=== PATIENT | female | born 1970 | race Caucasian/White ===

== ENCOUNTER 2017-04-25 00:09 | Inpatient (IN) | payer MEDICAID ==
[~2017-04-25] VITALS: Ht 167.6 cm; Wt 92.1 kg
[2017-04-25 01:36] LABS: BASOPHIL % 0.5 % (0-2); PLATELET COUNT 173 x10^3mcL (130-400); RED CELL DISTRIBUTION WIDTH 15.3 % (11.5-14.5)
[2017-04-25 01:40] LABS: CALCIUM 8.7 mg/dL (8.5-10.1); CARBON DIOXIDE 23.6 mmol/L (21-32); CHLORIDE SERUM 99 mmol/L (98-107); CREATININE SERUM 0.7 mg/dL (0.6-1.0); GFR1 > 60 mL/min; GLUCOSE SERUM 91 mg/dL (74-106); POTASSIUM SERUM 3.2 mmol/L (3.5-5.1); SODIUM SERUM 138 mmol/L (136-145)
[2017-04-25 01:45] LABS: ALBUMIN 3.6 g/dL (3.4-5.0); ALKALINE PHOSPHATASE 92 U/L (46-116); ALT/SGPT 63 U/L (14-59); AST/SGOT 69 U/L (15-37); BILIRUBIN TOTAL 3.32 mg/dL (0.20-1.00); MAGNESIUM 1.3 mg/dL (1.8-2.4); TOTAL PROTEIN, SERUM 6.9 g/dL (6.4-8.2)
[2017-04-25 04:04] VITALS: BP 145/81
[2017-04-25 04:39] LABS: T3 TOTAL 0.83 ng/mL
[2017-04-25 04:40] LABS: FREE T4 0.94 ng/dL (0.76-1.46); T4(THYROXINE) 5.5 ug/dL (4.7-13.3)
[2017-04-25 04:42] LABS: PHOSPHOROUS 2.6 mg/dL (2.5-4.9)
[2017-04-25 04:44] LABS: CHOLESTEROL/HDL RATIO 1.8
[2017-04-25 05:08] VITALS: BP 145/81
[2017-04-25 06:07] LABS: UA SPECIFIC GRAVITY 1.015 (1.005-1.035); microscopic required? YES; urine erythrocyte 2+ (NEGATIVE)
[2017-04-25 07:26] LABS: AMPHETAMINE QUAL UR NONE DETECTED (NEG <=1000)
[2017-04-25 09:29] VITALS: BP 130/89
[2017-04-25 14:05] VITALS: BP 120/79
[2017-04-25 18:01] VITALS: BP 144/89
[2017-04-25 21:47] VITALS: BP 137/87
[2017-04-26 04:53] VITALS: BP 134/94
[2017-04-26 06:32] LABS: CALCIUM 8.5 mg/dL (8.5-10.1); CARBON DIOXIDE 25.5 mmol/L (21-32); CHLORIDE SERUM 102 mmol/L (98-107); CREATININE SERUM 0.6 mg/dL (0.6-1.0); GFR1 > 60 mL/min; GLUCOSE SERUM 93 mg/dL (74-106); MAGNESIUM 1.7 mg/dL (1.8-2.4); POTASSIUM SERUM 3.8 mmol/L (3.5-5.1); SODIUM SERUM 137 mmol/L (136-145)
[2017-04-26 08:42] VITALS: BP 125/80
[2017-04-26 12:22] VITALS: BP 143/90
[2017-04-26] MEDS ORDERED: ECO81 PO (13:36)
[2017-04-26] MEDS ORDERED: DILTIAZEM30 M1 PO (13:37)
[2017-04-26] MEDS ORDERED: KEP500 PO (13:37)
[2017-04-26 16:22] VITALS: BP 134/93
[2017-04-26 21:50] VITALS: BP 146/95
[2017-04-27 04:52] VITALS: BP 138/87
[2017-04-27 08:05] VITALS: BP 142/87
[2017-04-27 12:34] VITALS: BP 151/90
[2017-04-27 16:31] VITALS: BP 142/91
[2017-04-27 20:43] VITALS: BP 142/89
[2017-04-28 05:29] VITALS: BP 142/91
[2017-04-28 08:54] VITALS: BP 140/89
[2017-04-28 12:39] VITALS: BP 141/89
[2017-04-28 16:26] VITALS: BP 144/94
[2017-04-28 20:45] VITALS: BP 136/88
[2017-04-29 05:33] VITALS: BP 123/85
[2017-04-29 06:58] LABS: CALCIUM 9.2 mg/dL (8.5-10.1); CARBON DIOXIDE 29.1 mmol/L (21-32); CHLORIDE SERUM 98 mmol/L (98-107); CREATININE SERUM 0.8 mg/dL (0.6-1.0); GFR1 > 60 mL/min; GLUCOSE SERUM 88 mg/dL (74-106); MAGNESIUM 1.6 mg/dL (1.8-2.4); SODIUM SERUM 137 mmol/L (136-145)
[2017-04-29 08:50] VITALS: BP 144/85
[2017-04-29 11:48] VITALS: BP 149/88
[2017-04-29 16:50] VITALS: BP 149/88
== END 2017-04-29 18:55 | disposition home or self-care (01) | DRG 201 ==
LOC: ED 00:09 → DU 02:52
PROVIDERS: Emergency Medicine; Student in an Organized Health Care Education/Training Program; ADMIT Family Medicine
DX: I48.0 Paroxysmal atrial fibrillation (principal); N17.0 Acute kidney failure with tubular necrosis; E83.39 Other disorders of phosphorus metabolism; E83.42 Hypomagnesemia; K76.0 Fatty (change of) liver, not elsewhere classified; E87.6 Hypokalemia; I69.898 Other sequelae of other cerebrovascular disease; G40.909 Epilepsy, unspecified, not intractable, without status epilepticus; R31.9 Hematuria, unspecified; K80.20 Calculus of gallbladder without cholecystitis without obstruction; Z59.0 Homelessness; Z91.19 Patient's noncompliance with other medical treatment and regimen; Z82.3 Family history of stroke
CPT/HCPCS: 83880; 84439; G0480; J1956; J2060; J3475; J3490; J7030

== ENCOUNTER 2017-06-08 20:04 | Emergency (ER) | payer MEDICAID ==
[~2017-06-08 20:04] MED LIST: DILTIAZEM30 M1 PO; ECO81 PO; KEP500 PO
[2017-06-08 21:26] LABS: CALCIUM 8.4 mg/dL (8.5-10.1); CARBON DIOXIDE 30.4 mmol/L (21-32); CHLORIDE SERUM 104 mmol/L (98-107); CREATININE SERUM 0.6 mg/dL (0.6-1.0); GFR1 > 60 mL/min; GLUCOSE SERUM 87 mg/dL (74-106); SODIUM SERUM 144 mmol/L (136-145)
[2017-06-08 21:32] LABS: ALBUMIN 3.8 g/dL (3.4-5.0); ALKALINE PHOSPHATASE 93 U/L (46-116); ALT/SGPT 95 U/L (14-59); AST/SGOT 74 U/L (15-37); TOTAL PROTEIN, SERUM 7.2 g/dL (6.4-8.2)
[2017-06-08 21:34] LABS: BASOPHIL % 0.8 % (0-2); PLATELET COUNT 201 x10^3mcL (130-400)
[2017-06-08 21:35] LABS: RED CELL DISTRIBUTION WIDTH 18.3 % (11.5-14.5)
[2017-06-08 23:00] VITALS: BP 100/61
== END 2017-06-08 23:22 | disposition home or self-care (01) ==
LOC: ED 20:04
PROVIDERS: Emergency Medicine
DX: F10.129 Alcohol abuse with intoxication, unspecified (principal); E87.6 Hypokalemia
CPT/HCPCS: 36415; G0480

== ENCOUNTER 2017-06-27 22:23 | Inpatient (IN) | payer MEDICAID ==
[~2017-06-27] VITALS: Ht 167.6 cm; Wt 83.9 kg
[2017-06-28 00:56] LABS: AMPHETAMINE QUAL UR NONE DETECTED (NEG <=1000)
[2017-06-28 01:31] LABS: CALCIUM 8.6 mg/dL (8.5-10.1); CARBON DIOXIDE 27.1 mmol/L (21-32); CHLORIDE SERUM 103 mmol/L (98-107); CHOLESTEROL 178 mg/dL (<200); CREATININE SERUM 0.6 mg/dL (0.6-1.0); GFR1 > 60 mL/min; GLUCOSE SERUM 107 mg/dL (74-106); LIPASE 105 IU/L (73-393); MAGNESIUM 1.7 mg/dL (1.8-2.4); PHOSPHOROUS 4.7 mg/dL (2.5-4.9); SODIUM SERUM 140 mmol/L (136-145); TRIGLYCERIDES 62 mg/dL (<150)
[2017-06-28 01:36] LABS: AMYLASE 23 U/L (25-115); CHOLESTEROL/HDL RATIO 1.9; HDL CHOLESTEROL 93 mg/dL (40-60)
[2017-06-28 01:37] VITALS: BP 121/479
[2017-06-28 01:40] LABS: T3 TOTAL 1.1 ng/mL
[2017-06-28 02:06] LABS: FREE T4 0.94 ng/dL (0.76-1.46); FREE THYROXINE INDEX 2.2 ug/dL (1.4-4.5)
[2017-06-28 02:12] LABS: PLATELET COUNT 231 x10^3mcL (130-400)
[2017-06-28 02:14] LABS: BASOPHIL % 3.4 % (0-2); RED CELL DISTRIBUTION WIDTH 17.6 % (11.5-14.5)
[2017-06-28 03:36] LABS: ALT/SGPT 121 U/L (14-59); AST/SGOT 126 U/L (15-37)
[2017-06-28 05:40] VITALS: BP 120/75
[2017-06-28 09:40] VITALS: BP 110/69
[2017-06-28 10:38] LABS: microscopic required? NO
[2017-06-28 11:11] LABS: UA SPECIFIC GRAVITY <=1.005 (1.005-1.035); urine erythrocyte NEGATIVE (NEGATIVE)
[2017-06-28 15:30] LABS: CALCIUM 8.9 mg/dL (8.5-10.1); CARBON DIOXIDE 26.4 mmol/L (21-32); CHLORIDE SERUM 103 mmol/L (98-107); CREATININE SERUM 0.5 mg/dL (0.6-1.0); GFR1 > 60 mL/min; GLUCOSE SERUM 77 mg/dL (74-106); POTASSIUM SERUM 3.6 mmol/L (3.5-5.1); SODIUM SERUM 138 mmol/L (136-145)
[2017-06-28 17:14] VITALS: BP 126/78
[2017-06-28 20:27] VITALS: BP 122/80
[2017-06-29 05:08] VITALS: BP 133/79
[2017-06-29 07:28] LABS: BASOPHIL % 0.6 % (0-2); PLATELET COUNT 198 x10^3mcL (130-400)
[2017-06-29 07:32] LABS: CALCIUM 8.6 mg/dL (8.5-10.1); CARBON DIOXIDE 27.9 mmol/L (21-32); CHLORIDE SERUM 104 mmol/L (98-107); CREATININE SERUM 0.5 mg/dL (0.6-1.0); GFR1 > 60 mL/min; GLUCOSE SERUM 96 mg/dL (74-106); MAGNESIUM 1.5 mg/dL (1.8-2.4); PHOSPHOROUS 2.9 mg/dL (2.5-4.9); POTASSIUM SERUM 3.5 mmol/L (3.5-5.1); SODIUM SERUM 138 mmol/L (136-145)
[2017-06-29 07:43] LABS: RED CELL DISTRIBUTION WIDTH 18.4 % (11.5-14.5)
[2017-06-29 09:14] VITALS: BP 127/76
[2017-06-29] MEDS ORDERED: ATI1 PO (10:42)
[2017-06-29] MEDS ORDERED: KEP500 PO (10:43)
[2017-06-29 11:39] VITALS: BP 127/76
[2017-06-29 12:06] VITALS: Ht 167.6 cm; Wt 83.9 kg
[2017-06-30 06:33] VITALS: BP 137/82
[2017-06-30 10:15] VITALS: BP 137/86
== END 2017-06-30 13:03 | disposition home or self-care (01) | DRG 53 ==
LOC: ED 22:23 → MU 06-28 00:21 → DU 06-28 00:21 → MU 06-28 11:39
PROVIDERS: Emergency Medicine; ADMIT Family Medicine
DX: G40.909 Epilepsy, unspecified, not intractable, without status epilepticus (principal); K70.0 Alcoholic fatty liver; I10 Essential (primary) hypertension; F10.239 Alcohol dependence with withdrawal, unspecified; F10.229 Alcohol dependence with intoxication, unspecified; T51.0X1A Toxic effect of ethanol, accidental (unintentional), initial encounter; K80.20 Calculus of gallbladder without cholecystitis without obstruction; E87.6 Hypokalemia; E66.9 Obesity, unspecified; Y90.8 Blood alcohol level of 240 mg/100 ml or more; Z59.0 Homelessness; Z91.14 Patient's other noncompliance with medication regimen; Z79.82 Long term (current) use of aspirin; Z68.29 Body mass index [BMI] 29.0-29.9, adult
CPT/HCPCS: 82962; 83880; 84439; G0480; J7030

== ENCOUNTER 2017-07-15 20:29 | Emergency (ER) | payer MEDICAID ==
[~2017-07-15] VITALS: Ht 167.6 cm; Wt 74.8 kg
[~2017-07-15 20:29] MED LIST changes: +ATI1 PO
[2017-07-15 21:29] LABS: BASOPHIL % 1.6 % (0-2); PLATELET COUNT 278 x10^3mcL (130-400)
[2017-07-15 21:30] LABS: RED CELL DISTRIBUTION WIDTH 16.6 % (11.5-14.5)
[2017-07-15 21:37] LABS: CALCIUM 8.9 mg/dL (8.5-10.1); CARBON DIOXIDE 23.9 mmol/L (21-32); CHLORIDE SERUM 99 mmol/L (98-107); CREATININE SERUM 0.6 mg/dL (0.6-1.0); GFR1 > 60 mL/min; GLUCOSE SERUM 118 mg/dL (74-106); POTASSIUM SERUM 3.1 mmol/L (3.5-5.1); SODIUM SERUM 138 mmol/L (136-145)
[2017-07-15 21:45] LABS: ALBUMIN 3.9 g/dL (3.4-5.0); ALKALINE PHOSPHATASE 98 U/L (46-116); ALT/SGPT 115 U/L (14-59); AST/SGOT 112 U/L (15-37); BILIRUBIN TOTAL 2.31 mg/dL (0.20-1.00); TOTAL PROTEIN, SERUM 7.4 g/dL (6.4-8.2)
[2017-07-15 23:38] VITALS: BP 112/69
== END 2017-07-15 23:43 | disposition home or self-care (01) ==
LOC: ED 20:29
PROVIDERS: Emergency Medicine
DX: E16.2 Hypoglycemia, unspecified (principal); F10.129 Alcohol abuse with intoxication, unspecified
CPT/HCPCS: 36415; 82962

== ENCOUNTER 2017-08-05 19:54 | Emergency (ER) | payer MEDICAID ==
[~2017-08-05] VITALS: Ht 167.6 cm; Wt 81.6 kg
[2017-08-05 19:58] VITALS: Ht 167.6 cm; Wt 81.6 kg
[2017-08-05 22:45] VITALS: BP 109/73
== END 2017-08-05 22:45 | disposition home or self-care (01) ==
LOC: ED 19:54
DX: G40.409 Other generalized epilepsy and epileptic syndromes, not intractable, without status epilepticus (principal); I10 Essential (primary) hypertension